=== PATIENT | female | born 1980 | race Caucasian/White ===

== ENCOUNTER 2018-06-02 01:21 | Emergency (ER) | payer OTHER ==
[2018-06-02 01:28] VITALS: BP 144/91
--- NOTE | 2018-06-02 01:51 | EDPHY ---
H & P Stated Complaint: L SHOULDER PAIN 1 MONTH, NOW INCREASING IN FREQUENCY Time Seen by Provider: 06/02/18 01:39 HPI/ROS: Chief Complaint: Left shoulder pain HPI: 37-year-old woman's been having intermittent left shoulder pain for the last 2 months. She denies any specific falls or injuries. She occasionally has pain in the posterior portion of her left shoulder. Particularly at night when she is moving around. No numbness or weakness. This morning she went to reach for the covers and felt a worsening pain in the left shoulder. This did improved but she is presenting now for further evaluation. She has not followed up with primary care physician for this. [facility] ROS: 10 systems were reviewed and were negative except those elements noted in the HPI. PMH: Bipolar disorder, arthritis, degenerative disc disease in her lumbar spine Social History: No smoking, no alcohol, no recreational drug use Family History: non-contributory Physical Exam: Gen: Awake, Alert, No Distress HEENT: Nose: no rhinorrhea Eyes: PERRLA, EOMI Mouth: Moist mucosa Neck: Supple, no JVD, nontender Ext: no edema, left shoulder is nontender, she has got full passive and active range of motion without pain. She is neurologically intact distally. Normal pulses. Capillary refills less than 2 sec. Skin: no rash Neuro: CN II-XII intact, Sensation grossly intact, Strength 5/5 in bilateral upper and lower extremities - Personal History LMP (Females 10-55): Extended Cycle BCP/Inj Current Tetanus/Diphtheria Vaccine: Yes Current Tetanus Diphtheria and Acellular Pertussis (TDAP): Yes - Medical/Surgical History Hx Asthma: No Hx Chronic Respiratory Disease: No Hx Diabetes: No Hx Cardiac Disease: No Hx Renal Disease: No Hx Cirrhosis: No Hx Alcoholism: No Hx HIV/AIDS: No Hx Splenectomy or Spleen Trauma: No Other PMH: HIGH CHOLESTEROL , BIPOLAR, ANXIETY, INSOMNIA, SLEEP APNIA, DDD - Social History Smoking Status: Current every day smoker Constitutional: Initial Vital Signs Temperature (C) 37.2 C 06/02/18 01:24 Heart Rate 93 06/02/18 01:24 Respiratory Rate 18 06/02/18 01:24 Blood Pressure 144/91 H 06/02/18 01:24 O2 Sat (%) 97 06/02/18 01:24 O2 Delivery Mode Room Air Allergies/Adverse Reactions: No Known Allergies Allergy (Unverified 06/02/18 01:28) Home Medications: Medication Instructions Recorded Acetaminophen [Ofirmev] 650 mg IV Q4 06/02/18 Atorvastatin Calcium [Lipitor 40 40 mg PO DAILY 06/02/18 mg (*)] Cetirizine [ZyrTEC 10 mg (*)] 10 mg PO DAILY 06/02/18 Cyclobenzaprine [Flexeril 10 MG 10 mg PO TID 06/02/18 (*)] Ibuprofen 800 mg PO TID 06/02/18 Propranolol Sr [Inderal LA 60mg 60 mg PO 06/02/18 (*)] risperiDONE [Risperdal] 2 mg PO 06/02/18 Medical Decision Making ED Course/Re-evaluation: 37-year-old woman presenting with 2 months of intermittent left shoulder pain. She is completely neurologically intact. She has full range of motion. Symptoms consistent with possible impingement verses rotator cuff process or arthritic changes. She has not had any new traumatic injuries. No reproducible point tenderness. I do not think x-rays would be useful at this time. Will refer her to Orthopedics for follow-up as an outpatient. She can continue ibuprofen and acetaminophen as needed for pain. Departure - Departure Disposition: Home, Routine, Self-Care Clinical Impression: Shoulder pain Condition: Good Instructions: Shoulder Pain (ED) Additional Instructions: Follow up with orthopedist in 4-5 days for further evaluation. You may alternate acetaminophen with ibuprofen as needed for pain. Apply ice for 15 min of every hour while awake. Return to the emergency department for new numbness or weakness in year left arm , cold arm, uncontrolled pain, or any other concerns. Referrals: Gabriel Maciel MD [Medical Doctor] - As per Instructions
== END 2018-06-02 02:05 | disposition home or self-care (01) ==
DX: M25.512 Pain in left shoulder (principal); M51.86 Other intervertebral disc disorders, lumbar region; F31.9 Bipolar disorder, unspecified

== ENCOUNTER 2018-06-26 15:42 | Emergency (ER) | payer OTHER ==
--- NOTE | 2018-06-26 16:19 | EDPHY ---
H & P Stated Complaint: LLQ cramping since last oumou; slight nausea;denies UTI sxs Time Seen by Provider: 06/26/18 16:18 HPI/ROS: HPI: This is a 37-year-old female who presents with Chief Complaint: LLQ cramping since last oumou; slight nausea;denies UTI sxs Location: Left lower quadrant of abdomen Quality: Cramping and pain Duration: Since 2:00 p.m. Yesterday afternoon Signs and Symptoms: no fever,+ nausea, no vomiting, no hematemesis, no blood in stool, no abdominal bloating, no diarrhea, no back pain, no urinary symptoms, no vaginal bleeding/discharge, no indigestion, no chest pain, no shortness of breath, no blood in urine Timing: Acute, worsened Severity: 03/21 Context: Patient has a history of bipolar disorder, anxiety, degenerative disc disease presents with complaints around 2:00 p.m. Yesterday afternoon of left lower quadrant cramping that was nonradiating in nature. She reports that it remained pretty constant throughout yesterday evening but she was able to sleep last night. This morning and into this afternoon she started to developed left lower quadrant pain that is nonradiating in nature. Patient reports that she felt nauseous while in the waiting room and dizzy. Her last meal was 1:30 p.m. This afternoon approximately 3 hr prior to arrival. Takes extended control. Does not have regular menses. Patient has no history of kidney stones , ovarian cysts that she knows of. She reports that she has daily loose stools but this is common for her. Modifying Factors: None Comment: ROS: A comprehensive 10 system review of systems is otherwise negative aside from elements mentioned in the history of present illness. MEDICAL/SURGICAL/SOCIAL HISTORY: Medical history: HIGH CHOLESTEROL , BIPOLAR, ANXIETY, INSOMNIA, SLEEP APNEA, DDD Surgical history: Denies Social history: Nonsmoker. Employed at [employer]. Family history noncontributory. CONSTITUTIONAL: Extremely well-appearing overweight adult white female, awake and alert, no obvious distress HEENT: Atraumatic and normocephalic, PERRL, EOMI. Nares patent; no rhinorrhea; no nasal mucosal edema. Tympanic membranes clear. Oropharynx clear, no exudate and moist pink mucosa. Airway patent. No lymphadenopathy. No meningismus. Cardiovascular: Normal S1/S2, regular rate, regular rhythm, without murmur rub or gallop. PULMONARY/CHEST: Symmetrical and nontender. Clear to auscultation bilaterally. Good air movement. No accessory muscle usage. ABDOMEN: Soft, obesely rounded, nondistended, moderate left lower quadrant tenderness, no rebound, no guarding, no peritoneal signs, no masses or organomegaly. No CVAT. Bowel sounds are normoactive x4. EXTREMITIES: 2/2 pulses, strength 5/5, no deformities, no clubbing, no cyanosis or edema. NEUROLOGICAL: no focal neuro deficits. GCS 15. SKIN: Warm and dry, no erythema. no rash. Good capillary refill. Source: Patient Exam Limitations: No limitations - Personal History LMP (Females 10-55): Extended Cycle BCP/Inj Current Tetanus Diphtheria and Acellular Pertussis (TDAP): Yes - Medical/Surgical History Hx Asthma: No Hx Chronic Respiratory Disease: No Hx Diabetes: No Hx Cardiac Disease: No Hx Renal Disease: No Hx Cirrhosis: No Hx Alcoholism: No Hx HIV/AIDS: No Hx Splenectomy or Spleen Trauma: No Other PMH: HIGH CHOLESTEROL , BIPOLAR, ANXIETY, INSOMNIA, SLEEP APNIA, DDD - Social History Smoking Status: Current every day smoker Constitutional: Initial Vital Signs Temperature (C) 37.1 C 06/26/18 15:50 Heart Rate 94 06/26/18 15:50 Respiratory Rate 18 06/26/18 15:50 Blood Pressure 148/81 H 06/26/18 15:50 O2 Sat (%) 96 06/26/18 15:50 O2 Delivery Mode Room Air Allergies/Adverse Reactions: No Known Allergies Allergy (Verified 06/26/18 16:00) Home Medications: Medication Instructions Recorded Acetaminophen [Ofirmev] 650 mg IV Q4 06/02/18 Atorvastatin Calcium [Lipitor 40 40 mg PO DAILY 06/02/18 mg (*)] Cetirizine [ZyrTEC 10 mg (*)] 10 mg PO DAILY 06/02/18 Cyclobenzaprine [Flexeril 10 MG 10 mg PO TID 06/02/18 (*)] Ibuprofen 800 mg PO TID 06/02/18 Propranolol Sr [Inderal LA 60mg 60 mg PO 06/02/18 (*)] risperiDONE [Risperdal] 2 mg PO 06/02/18 Medical Decision Making - Diagnostics Imaging Results: Imaging Impressions Abdomen/Pelvis CT 06/26/18 16:24 Impression: 1. Moderate stool in the proximal colon. 2. Tiny fat-containing periumbilical hernia. 3. Additional findings as above. Findings discussed with Aracely Zelaya 06/26/2018 at 17:50. Attention: This CT examination is specifically designed to evaluate patients who are clinically suspected of having acute obstructive uropathy. This examination does not use radiographic contrast and provides only a limited evaluation of the abdomen, pelvis and retroperitoneum. If there is further clinical suspicion for pathological conditions other than obstructive uropathy, a complete CT evaluation of the abdomen and pelvis utilizing intravenous and enteric contrast should be considered. Pelvic/Renal Ultrasound 06/26/18 16:24 Impression: There is a benign-appearing 2.7 cm left ovarian cyst, with no evidence of torsion or free fluid. Findings were discussed with Aracely Zelaya PA-C at 17:47, on 06/26/2018. . ED Course/Re-evaluation: Vital signs reviewed and stable upon arrival. No systemic signs. Laboratory studies, urinalysis, time a CT abdomen and pelvis scan without contrast to evaluate for diverticulitis and kidney stone, pelvic ultrasound to evaluate for ovarian cyst and torsion. Patient given 1 L normal saline, IV morphine 4 mg, and IV Zofran 4 mg Called by radiologist who advised pelvic ultrasound shows 2.7 cm simple cyst with no signs of free fluid, no ovarian torsion, and good blood flow to both ovaries. CT abdomen and pelvis scan shows moderate stool but no signs of appendicitis, no stone, no diverticulitis. Labs reviewed. No signs of leukocytosis/anemia/platelet dysfunction/SERGIO/ elevated LFTs/electrolyte imbalance/pancreatitis. Reassessed patient and abdomen is soft and nontender. Passed p.o. Trial prior to discharge. Advised patient to follow up with 's Administration and obgyn referral for repeat ultrasound in 6 months. This patient was seen under the supervision of my secondary supervising physician. I evaluated care for this patient independently. Discussed this patient with Dr. Deshpande. Differential Diagnosis: Abdominal pain in a female including but not limited to ovarian cyst, pelvic inflammatory disease, ovarian torsion, urinary tract infection, and appendicitis. - Data Points Laboratory Results: Laboratory Results 06/26/18 16:43 06/26/18 16:43 06/26/18 06/26/1806/26/18 16:43 16:43 16:43 WBC 8.98 10^3/uL 10^3/uL (3.80-9.50) RBC 4.36 10^6/uL 10^6/uL (4.18-5.33) Hgb 14.0 g/dL g/dL (12.6-16.3) Hct 39.5 % % (38.0-47.0) MCV 90.6 fL fL (81.5-99.8) MCH 32.1 pg pg (27.9-34.1) MCHC 35.4 g/dL g/dL (32.4-36.7) RDW 12.9 % % (11.5-15.2) Plt Count 240 10^3/uL 10^3/uL (150-400) MPV 11.6 fL fL (8.7-11.7) Neut % (Auto) 61.7 % % (39.3-74.2) Lymph % (Auto) 28.6 % % (15.0-45.0) Greenlee % (Auto) 7.0 % % (4.5-13.0) Eos % (Auto) 2.1 % % (0.6-7.6) Baso % (Auto) 0.4 % % (0.3-1.7) Nucleat RBC Rel Count 0.0 % % (0.0-0.2) Absolute Neuts (auto) 5.53 10^3/uL 10^3/uL (1.70-6.50) Absolute Lymphs (auto) 2.57 10^3/uL 10^3/uL (1.00-3.00) Absolute Monos (auto) 0.63 10^3/uL 10^3/uL (0.30-0.80) Absolute Eos (auto) 0.19 10^3/uL 10^3/uL (0.03-0.40) Absolute Basos (auto) 0.04 10^3/uL 10^3/uL (0.02-0.10) Absolute Nucleated RBC 0.00 10^3/uL 10^3/uL (0-0.01) Immature Gran % 0.2 % % (0.0-1.1) Immature Gran # 0.02 10^3/uL 10^3/uL (0.00-0.10) Sodium 137 mEq/L mEq/L (135-145) Potassium 4.0 mEq/L mEq/L (3.3-5.0) Chloride 103 mEq/L mEq/L (97-110) Carbon Dioxide 24 mEq/l mEq/l (22-31) Anion Gap 10 mEq/L mEq/L (6-14) BUN 6 mg/dL L mg/dL (7-23) Creatinine 0.6 mg/dL mg/dL (0.6-1.0) Estimated GFR > 60 Glucose 87 mg/dL mg/dL (70-100) Calcium 9.7 mg/dL mg/dL (8.5-10.4) Total Bilirubin 0.4 mg/dL mg/dL (0.1-1.4) Conjugated Bilirubin 0.1 mg/dL mg/dL (0.0-0.5) Unconjugated Bilirubin 0.3 mg/dL mg/dL (0.0-1.1) AST 21 IU/L IU/L (14-46) ALT 29 IU/L IU/L (9-52) Alkaline Phosphatase 89 IU/L IU/L (38-126) Total Protein 7.1 g/dL g/dL (6.3-8.2) Albumin 4.2 g/dL g/dL (3.5-5.0) Lipase 67 IU/L IU/L (23-300) Beta HCG, Qual NEGATIVE Medications Given: Discontinued Medications Sodium Chloride (Ns) 1,000 mls @ 0 mls/hr IV EDNOW ONE; Wide Open PRN Reason: Protocol Stop: 06/26/18 16:25 Last Admin: 06/26/18 16:49 Dose: 1,000 mls Morphine Sulfate (Morphine) 4 mg IVP EDNOW ONE Stop: 06/26/18 16:25 Last Admin: 06/26/18 16:49 Dose: 4 mg Ondansetron HCl (Zofran) 4 mg IVP EDNOW ONE Stop: 06/26/18 16:25 Last Admin: 06/26/18 16:50 Dose: 4 mg Departure - Departure Disposition: Home, Routine, Self-Care Clinical Impression: Left ovarian cyst, Constipation by delayed colonic transit Condition: Good Instructions: Ovarian Cyst (ED), Constipation (ED), High Fiber Diet (ED) Additional Instructions: Consume a minimum of 8-10 glasses of water or electrolyte fluid replacement drinks that include Gatorade, Powerade, Pedialyte. Eat a bland diet for the next 48 hours and then slowly advance as tolerated. Take MiraLax daily as needed for constipation. Eat a diet high in fiber including fruits and vegetables. Take Tylenol 650 mg every 4 hours and/or Ibuprofen 600 mg every 8 hours with food as needed for pain. Follow up with OBGYN in 6 months for repeat pelvic ultrasound to document stability of ovarian cyst. Return to the ER immediately if you experience new, continued or worsening abdominal pain, fevers/chills, inability to tolerate oral intake, new pain, or any other symptoms that concern you. Referrals: PCP Not In,Dictionary [Medical Doctor] - As per Instructions ([facility]
[2018-06-26] MEDS ORDERED: ONDANSETRON 4 MG/2 ML VIAL IVP ONE (16:24)
[2018-06-26] MEDS ORDERED: NS 1,000 ML IV ONE (16:24)
[2018-06-26 16:57] LABS: PLATELET COUNT 240 10^3/uL (150-400)
[2018-06-26 18:41] VITALS: BP 125/85
== END 2018-06-26 18:43 | disposition home or self-care (01) ==
DX: N83.202 Unspecified ovarian cyst, left side (principal); K59.01 Slow transit constipation; E86.9 Volume depletion, unspecified
CPT/HCPCS: 96374; J2270; J2405